=== PATIENT | female | born 1965 | race Two or more races ===

== ENCOUNTER 2019-11-29 12:47 | Outpatient (CLI) | payer OTHER | END 2019-11-29 12:56 | disposition home or self-care (01) | LOC: SONOGRAMA 12:47 | PROVIDERS: ATTEND Specialist | DX: M75.112 Incomplete rotator cuff tear or rupture of left shoulder, not specified as traumatic (principal); M75.02 Adhesive capsulitis of left shoulder; S22.080A Wedge compression fracture of T11-T12 vertebra, initial encounter for closed fracture; S22.31XA Fracture of one rib, right side, initial encounter for closed fracture; M19.011 Primary osteoarthritis, right shoulder ==

== ENCOUNTER 2020-01-08 15:26 | Outpatient (CLI) | payer OTHER | END 2020-01-08 15:32 | disposition home or self-care (01) | LOC: RAD 15:26 | PROVIDERS: ATTEND Specialist | DX: M77.32 Calcaneal spur, left foot (principal); M77.31 Calcaneal spur, right foot; M19.071 Primary osteoarthritis, right ankle and foot; M19.072 Primary osteoarthritis, left ankle and foot; E10.610 Type 1 diabetes mellitus with diabetic neuropathic arthropathy ==

== ENCOUNTER 2020-03-11 10:33 | Outpatient (CLI) | payer OTHER | END 2020-03-11 10:46 | disposition home or self-care (01) | LOC: MAMO-SONO 10:33 | PROVIDERS: ATTEND Specialist | DX: N60.01 Solitary cyst of right breast (principal); E04.1 Nontoxic single thyroid nodule; N60.11 Diffuse cystic mastopathy of right breast; N60.12 Diffuse cystic mastopathy of left breast; Z12.31 Encounter for screening mammogram for malignant neoplasm of breast ==

== ENCOUNTER 2020-03-11 14:27 | Outpatient (CLI) | payer OTHER | END 2020-03-11 14:48 | disposition home or self-care (01) | LOC: NUCLEAR 14:27 | PROVIDERS: ATTEND Specialist | DX: M81.0 Age-related osteoporosis without current pathological fracture (principal) ==